=== PATIENT | male | born 2000 | race Two or more races ===

== ENCOUNTER 2021-06-10 08:28 | Emergency (ER) | payer SELFPAY ==
[2021-06-10] MEDS ORDERED: Alum Hydrox/Mag Hydrox/Simeth 30 ML, Lidocaine 2% 15 ML PO ONE ×2 (08:58)
[2021-06-10] MEDS ORDERED: Pantoprazole 40 MG Vial IVPUSH ONE (08:59)
[2021-06-10] MEDS ORDERED: Dextrose 5%-0.9% NaCl 1,000 ML IV SCH (09:00)
== END 2021-06-10 10:35 | disposition home or self-care (01) ==
LOC: JD.ED 08:28
DX: K29.00 Acute gastritis without bleeding (principal)
CPT/HCPCS: 36415; 71045; 80053; 83690; 85025; 93005; 96374; 99284; A9270; C9113; J7042; 93010; 99285